=== PATIENT | male | born 1965 | race Caucasian/White ===

== ENCOUNTER 2023-02-21 17:27 | Observation (INO) | payer BC ==
[2023-02-21 18:04] LABS: Basophils % (A) 0 %; Eosinophils # (A) 0.1 k/uL (0-0.7); Eosinophils % (A) 2 %; HCT 38.3 % (39.0-53.0); HGB 13.6 gm/dL (13.0-17.5); Lymphocytes # (A) 2.1 k/uL (1.0-4.8); Lymphocytes % (A) 35 %; MCH 30.9 pg (25.0-35.0); MCHC 35.4 g/dL (31.0-37.0); MCV 87.3 fL (80.0-100.0); Mean Platelet Volume 7.4; Monocytes # (A) 0.4 k/uL (0-1.0); Monocytes % (A) 7 %; Neutrophils # (A) 3.1 k/uL (1.3-7.7); Neutrophils % (A) 54 %; Platelet Count 268 k/uL (150-450); RBC 4.39 m/uL (4.30-5.90); WBC 5.9 k/uL (3.8-10.6)
[2023-02-21 18:13] LABS: Partial Thromboplastin Time 24.9 sec (22.0-30.0); Prothrombin Time 10.8 sec (9.0-12.0)
[2023-02-21 18:18] LABS: ALT 51 U/L (4-49); AST 35 U/L (17-59); African American GFR (CKD) >90 (>60 ml/min/1.73 sqM); Albumin 4.6 g/dL (3.5-5.0); Alkaline Phosphatase 51 U/L (38-126); Anion Gap 14 mmol/L; Blood Urea Nitrogen 10 mg/dL (9-20); Calcium 9.1 mg/dL (8.4-10.2); Carbon Dioxide 26 mmol/L (22-30); Chloride 103 mmol/L (98-107); Glucose 116 mg/dL (74-99); Non-African American GFR(CKD) 80 (>60 ml/min/1.73 sqM); Potassium 3.8 mmol/L (3.5-5.1); Sodium 143 mmol/L (137-145); Total Bilirubin 0.6 mg/dL (0.2-1.3); Total Protein 7.9 g/dL (6.3-8.2)
[2023-02-21] MEDS ORDERED: ASPIRIN 81 MG PO STA (18:21)
[2023-02-21] MEDS ORDERED: NITROGLYCERIN OINT 1 INCH/GM PACKET TOPICAL STA (18:21)
[2023-02-21] MEDS ORDERED: LORazepam 2 MG/ML INJ IV STA (18:21)
--- NOTE | 2023-02-21 18:22 | ED ---
General Adult HPI - General Chief complaint: Chest Pain Stated complaint: Chest Pain Time Seen by Provider: 02/21/23 18:00 Source: patient, RN notes reviewed, old records reviewed Mode of arrival: ambulatory Limitations: no limitations - History of Present Illness Initial comments: This a 58-year-old male presents emergency Department complaining of left-sided chest pain. Patient states that the pain has been coming and going since last night. Patient states he has no reproducible pain with palpation. Patient states is no pain with deep breath. Patient states he doesn't have any radiation of the pain patient denies any shortness of breath. Patient states she's never had this kind of pain before. Patient states he does have diabetes and he has a very strong family history of heart disease. Patient blood pressure is very elevated on arrival. Patient denies any smoking history. Patient denies any recent fever chills or cough per patient denies any abdominal pain patient denies nausea vomiting diarrhea. Patient denies headache patient denies numbness weakness. Patient denies any lightheadedness or dizziness. - Related Data Home Medications Medication Instructions Recorded Confirmed metFORMIN HCL [Glucophage] 500 mg PO BID 02/21/23 02/21/23 Allergies Allergy/AdvReac Type Severity Reaction Status Date / Time No Known Allergies Allergy Verified 02/21/23 18:12 Review of Systems ROS Statement: Those systems with pertinent positive or pertinent negative responses have been documented in the HPI. ROS Other: All systems not noted in ROS Statement are negative. Past Medical History Past Medical History: Diabetes Mellitus History of Any Multi-Drug Resistant Organisms: None Reported Past Surgical History: Hernia Repair Past Psychological History: No Psychological Hx Reported Smoking Status: Never smoker Past Alcohol Use History: None Reported Past Drug Use History: None Reported General Exam - General Exam Comments Initial Comments: GENERAL: Patient is well-developed and well-nourished. Patient is nontoxic and well-hydrated and is in mild distress. ENT: Neck is soft and supple. No significant lymphadenopathy is noted. Oropharynx is clear. Moist mucous membranes. Neck has full range of motion without eliciting any pain. EYES: The sclera were anicteric and conjunctiva were pink and moist. Extraocular movements were intact and pupils were equal round and reactive to light. Eyelids were unremarkable. PULMONARY: Unlabored respirations. Good breath sounds bilaterally. No audible rales rhonchi or wheezing was noted. CARDIOVASCULAR: There is a regular rate and rhythm without any murmurs gallops or rubs. ABDOMEN: Soft and nontender with normal bowel sounds. SKIN: Skin is clear with no lesions or rashes and otherwise unremarkable. NEUROLOGIC: Patient is alert and oriented x3. Cranial nerves II through XII are grossly intact. Motor and sensory are also intact. Normal speech, volume and content. Symmetrical smile. MUSCULOSKELETAL: Normal extremities with adequate strength and full range of motion. LYMPHATICS: No significant lymphadenopathy is noted PSYCHIATRIC: Normal psychiatric evaluation. Limitations: no limitations Course Vital Signs 02/21/23 02/21/23 17:38 18:45 Temperature 98.3 F Pulse Rate 78 79 Respiratory 20 16 Rate Blood Pressure 168/110 164/109 O2 Sat by Pulse 99 100 Oximetry Procedures - Procedures Initial comment: Patient complain to family about something being in her left eye some family asked me to look I used proparacaine and then used fluorescein stain used a Sutherland lamp and examined that I no foreign body I no abrasion. Medical Decision Making - Medical Decision Making EKG was interpreted by myself it shows a sinus rhythm at 70 bpm IN interval 261 QRS is 96 Q-T intervals 391 QTC is 411. Patient's EKG shows no ST segment elevation or depression. Was pt. sent in by a medical professional or institution (, PA, FACILITY ASSISTANT, urgent care, hospital, or long term...) When possible be specific @ -No Did you speak to anyone other than the patient for history (EMS, parent, family, police, friend...)? What history was obtained from this source @ -No Did you review nursing and triage notes (agree or disagree)? Why? @ -I reviewed and agree with nursing and triage notes Were old charts reviewed (outside hosp., previous admission, EMS record, old EKG, old radiological studies, urgent care reports/EKG's, long term records)? Report findings @ -No old charts were reviewed Differential Diagnosis (chest pain, altered mental status, abdominal pain women, abdominal pain men, vaginal bleeding, weakness, fever, dyspnea, syncope, headache, dizziness, GI bleed, back pain, seizure, CVA, palpatations, mental health, musculoskeletal)? @ -Differential Chest Pain: Stable Angina, Unstable Angina, STEMI, NSTEMI Aortic Dissection, Pneumothorax, Musculoskeletal, Esophageal Spasm GERD, Cholecystitis, Pancreatitis, Zoster, this is not meant to be an all-inclusive list. EKG interpreted by me (3pts min.). @ -As above X-rays interpreted by me (1pt min.). @ -Chest x-ray was interpreted by myself. Chest x-ray shows no acute abnormality CT interpreted by me (1pt min.). @ -None done U/S interpreted by me (1pt. min.). @ -None done What testing was considered but not performed or refused? (CT, X-rays, U/S, labs)? Why? @ -None What meds were considered but not given or refused? Why? @ -None Did you discuss the management of the patient with other professionals (professionals i.e. DrKristin, PA, FACILITY ASSISTANT, lab, RT, psych nurse, school social worker, glazier metal furniture, teacher, supply requirements officer, case specialist)? Give summary @ -I spoke with Dr. Dior he agreed to admit the patient minute the patient wrote admitting orders Was smoking cessation discussed for >3mins.? @ -No Was critical care preformed (if so, how long)? @ -No Were there social determinants of health that impacted care today? How? (Homel essness, low income, unemployed, alcoholism, drug addiction, transportation, low edu. Level, literacy, decrease access to med. care, penitentiary, rehab)? @ -No Was there de-escalation of care discussed even if they declined (Discuss DNR or withdrawal of care, Hospice)? DNR status @ -No What co-morbidities impacted this encounter? (DM, HTN, Smoking, COPD, CAD, Cancer, CVA, ARF, Chemo, Hep., AIDS, mental health diagnosis, sleep apnea, morbid obesity)? @ -Strong family history of coronary artery disease patient also has high cholesterol Was patient admitted / discharged? Hospital course, mention meds given and route, prescriptions, significant lab abnormalities, going to OR and other per tinent info. @ -Patient's chest pain was minimal in the emergency department. Patient had Nitropaste patient also had aspirin. Patient's chest x-ray showed no acute abnormality I spoke with Dr. Dior he agreed to admit the patient admitted the patient wrote admitting orders Undiagnosed new problem with uncertain prognosis? @ -No Drug Therapy requiring intensive monitoring for toxicity (Heparin, Nitro, Insulin, Cardizem)? @ -No Were any procedures done? @ -No Diagnosis/symptom? @ -Chest pain Acute, or Chronic, or Acute on Chronic? @ -Acute Uncomplicated (without systemic symptoms) or Complicated (systemic symptoms)? @ -Complicated Side effects of treatment? @ -No Exacerbation, Progression, or Severe Exacerbation? @ -No Poses a threat to life or bodily function? How? (Chest pain, [place], [place], pneumonia, PE, COPD, DKA, ARF, appy, cholecystitis, CVA, Diverticulitis, Homicidal, Suicidal, threat to staff... and all critical care pts) @ -This could lead to hypoperfusion end organ dysfunction - Lab Data Result diagrams: 02/21/23 17:53 02/21/23 17:53 Lab Results 02/21/23 02/21/23 02/21/23 Range/Units 17:53 17:53 17:53 WBC 5.9 (3.8-10.6) k/uL RBC 4.39 (4.30-5.90) m/uL Hgb 13.6 (13.0-17.5) gm/dL Hct 38.3 L (39.0-53.0) % MCV 87.3 (80.0-100.0) fL MCH 30.9 (25.0-35.0) pg MCHC 35.4 (31.0-37.0) g/dL RDW 13.0 (11.5-15.5) % Plt Count 268 (150-450) k/uL MPV 7.4 Neutrophils % 54 % Lymphocytes % 35 % Monocytes % 7 % Eosinophils % 2 % Basophils % 0 % Neutrophils # 3.1 (1.3-7.7) k/uL Lymphocytes # 2.1 (1.0-4.8) k/uL Monocytes # 0.4 (0-1.0) k/uL Eosinophils # 0.1 (0-0.7) k/uL Basophils # 0.0 (0-0.2) k/uL PT 10.8 (9.0-12.0) sec INR 1.0 (<1.2) APTT 24.9 (22.0-30.0) sec Sodium 143 (137-145) mmol/L Potassium 3.8 (3.5-5.1) mmol/L Chloride 103 (98-107) mmol/L Carbon Dioxide 26 (22-30) mmol/L Anion Gap 14 mmol/L BUN 10 (9-20) mg/dL Creatinine 1.02 (0.66-1.25) mg/dL Est GFR (CKD-EPI)AfAm >90 (>60 ml/min/1.73 sqM) Est GFR (CKD-EPI)NonAf 80 (>60 ml/min/1.73 sqM) Glucose 116 H (74-99) mg/dL Calcium 9.1 (8.4-10.2) mg/dL Total Bilirubin 0.6 (0.2-1.3) mg/dL AST 35 (17-59) U/L ALT 51 H (4-49) U/L Alkaline Phosphatase 51 (38-126) U/L Troponin I (0.000-0.034) ng/mL Total Protein 7.9 (6.3-8.2) g/dL Albumin 4.6 (3.5-5.0) g/dL 02/21/23 Range/Units 17:53 WBC (3.8-10.6) k/uL RBC (4.30-5.90) m/uL Hgb (13.0-17.5) gm/dL Hct (39.0-53.0) % MCV (80.0-100.0) fL MCH (25.0-35.0) pg MCHC (31.0-37.0) g/dL RDW (11.5-15.5) % Plt Count (150-450) k/uL MPV Neutrophils % % Lymphocytes % % Monocytes % % Eosinophils % % Basophils % % Neutrophils # (1.3-7.7) k/uL Lymphocytes # (1.0-4.8) k/uL Monocytes # (0-1.0) k/uL Eosinophils # (0-0.7) k/uL Basophils # (0-0.2) k/uL PT (9.0-12.0) sec INR (<1.2) APTT (22.0-30.0) sec Sodium (137-145) mmol/L Potassium (3.5-5.1) mmol/L Chloride (98-107) mmol/L Carbon Dioxide (22-30) mmol/L Anion Gap mmol/L BUN (9-20) mg/dL Creatinine (0.66-1.25) mg/dL Est GFR (CKD-EPI)AfAm (>60 ml/min/1.73 sqM) Est GFR (CKD-EPI)NonAf (>60 ml/min/1.73 sqM) Glucose (74-99) mg/dL Calcium (8.4-10.2) mg/dL Total Bilirubin (0.2-1.3) mg/dL AST (17-59) U/L ALT (4-49) U/L Alkaline Phosphatase (38-126) U/L Troponin I <0.012 (0.000-0.034) ng/mL Total Protein (6.3-8.2) g/dL Albumin (3.5-5.0) g/dL Disposition Clinical Impression: Chest pain Disposition: ADMITTED IP TO THIS [facility] Referrals: Alanna Poole MD [Primary Care Provider] - 1-2 days Time of Disposition: 20:25
--- NOTE | 2023-02-21 19:19 | XR ---
EXAMINATION TYPE: XR chest 2V DATE OF EXAM: 02/21/2023 COMPARISON: NONE HISTORY: Difficulty in breathing and chest pain. TECHNIQUE: Frontal and lateral views of the chest are obtained. FINDINGS: There is no focal air space opacity, pleural effusion, or pneumothorax seen. The cardiac silhouette size is upper limits of normal. The osseous structures are intact. Overlying EKG leads a re present. IMPRESSION: No acute cardiopulmonary process.
[2023-02-21] MEDS ORDERED: NITROGLYCERIN SL TABS 0.4 MG TAB SUBLINGUAL PRN (20:25)
[2023-02-21 21:32] LABS: Glucose,Whole Blood 132 mg/dL (70-110)
[2023-02-21] MEDS: metFORMIN 500 MG TAB PO SCH (21:44)
[2023-02-21] MEDS: NITROGLYCERIN OINT 1 INCH/GM PACKET TOPICAL SCH (23:40)
[2023-02-22] MEDS: NITROGLYCERIN OINT 1 INCH/GM PACKET TOPICAL SCH (06:27)
[2023-02-22] MEDS: metFORMIN 500 MG TAB PO SCH (06:27)
[2023-02-22 06:29] LABS: Glucose,Whole Blood 133 mg/dL (70-110)
--- NOTE | 2023-02-22 08:04 | P.CRDCN ---
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 He has no history of known CAD. Denies history of hypertension and hyperlipidemia. Has history of diabetes mellitus type 2 and according to the patient his last hemoglobin A1c was 5.7%. He presented to the emergency department with complaints of left-sided chest pressure, occurring randomly, not related to physical activity, brief and intermittent. He was apparently helping a neighbor move over the weekend without any issues but feels that this could possibly be musculoskeletal. Upon arrival his blood pressure was quite elevated. Remains elevated this morning. EKG showed sinus mechanism with no evidence of ischemia. Troponins have been unremarkable. Currently complains of a headache likely from nitroglycerin paste. Continues to have intermittent episodes of pressure in the left side of his chest does not appear to be reproducible, intermittent and brief. Chest x-ray showed no acute process. He seems to be average in his physical activity he is retired does not do any type of routine exercise program but is active or doing housework. He denies any complaints of shortness of breath, palpitations, dizziness, lightheadedness. He has no orthopnea, edema or PND. She has felt somewhat more tired lately but denies any change in his physical activity. Past Medical History Past Medical History: Diabetes Mellitus History of Any Multi-Drug Resistant Organisms: None Reported Past Surgical History: Hernia Repair Past Psychological History: No Psychological Hx Reported Smoking Status: Never smoker Past Alcohol Use History: None Reported Past Drug Use History: None Reported Medications and Allergies Home Medications Medication Instructions Recorded Confirmed Type metFORMIN HCL [Glucophage] 500 mg PO BID 02/21/23 02/21/23 History Allergies Allergy/AdvReac Type Severity Reaction Status Date / Time No Known Allergies Allergy Verified 02/21/23 18:12 Physical Exam Vitals: Vital Signs Temp Pulse Pulse Resp BP BP Pulse Ox 02/22/23 04:00 68 18 146/82 99 02/22/23 01:55 67 18 02/21/23 23:48 98.2 F 67 18 131/71 100 02/21/23 21:30 18 02/21/23 21:26 98.2 F 63 18 152/82 100 02/21/23 21:06 68 16 148/86 98 02/21/23 20:00 80 16 140/80 98 02/21/23 19:00 78 16 130/89 98 02/21/23 18:45 79 16 164/109 100 02/21/23 17:38 98.3 F 78 20 168/110 99 Intake and Output 02/21/23 02/22/23 02/22/23 22:59 06:59 14:59 Intake Total 480 Balance 480 Intake: Oral 480 Other: Voiding Method Toilet Toilet # Voids 2 Weight 92.986 kg PHYSICAL EXAMINATION: This is a 58-year-old gentleman in no apparent distress at the time of my examination. HEENT: Head is atraumatic, normocephalic. Pupils are equal, round. Sclerae anicteric. Conjunctivae are clear. Mucous membranes of the mouth are moist. Neck is supple. There is no elevated jugular venous pressure. No carotid bruit is heard. CHEST EXAMINATION: Clear to auscultation bilaterally. No wheezes rales or rhonchi. Respirations even and nonlabored. HEART EXAMINATION: Heart regular, positive S1 and S2. No S3. No S4. No clicks, rubs or murmurs. ABDOMEN: Soft, nontender. Bowel sounds are heard. No organomegaly noted. EXTREMITIES: 2+ peripheral pulses with no evidence of peripheral edema and no calf tenderness noted. NEUROLOGIC EXAMINATION: Patient is awake, alert and oriented x3. Results 02/21/23 17:53 02/21/23 17:53 Cardiac Enzymes 02/21/23 02/21/23 02/21/23 Range/Units 17:53 17:53 22:12 AST 35 (17-59) U/L Troponin I <0.012 <0.012 (0.000-0.034) ng/mL 02/22/23 Range/Units 03:17 AST (17-59) U/L Troponin I <0.012 (0.000-0.034) ng/mL Coagulation 02/21/23 Range/Units 17:53 PT 10.8 (9.0-12.0) sec APTT 24.9 (22.0-30.0) sec CBC 02/21/23 Range/Units 17:53 WBC 5.9 (3.8-10.6) k/uL RBC 4.39 (4.30-5.90) m/uL Hgb 13.6 (13.0-17.5) gm/dL Hct 38.3 L (39.0-53.0) % Plt Count 268 (150-450) k/uL Comprehensive Metabolic Panel 02/21/23 Range/Units 17:53 Sodium 143 (137-145) mmol/L Potassium 3.8 (3.5-5.1) mmol/L Chloride 103 (98-107) mmol/L Carbon Dioxide 26 (22-30) mmol/L BUN 10 (9-20) mg/dL Creatinine 1.02 (0.66-1.25) mg/dL Glucose 116 H (74-99) mg/dL Calcium 9.1 (8.4-10.2) mg/dL AST 35 (17-59) U/L ALT 51 H (4-49) U/L Alkaline Phosphatase 51 (38-126) U/L Total Protein 7.9 (6.3-8.2) g/dL Albumin 4.6 (3.5-5.0) g/dL Current Medications Generic Name Dose Route Start Last Admin Trade Name Freq PRN Reason Stop Dose Admin Aspirin 325 mg 02/22/23 09:00 Aspirin 325 Mg Tab PO DAILY [facility] Lisinopril 5 mg 02/22/23 09:00 Lisinopril 5 Mg Tab PO DAILY [facility] Metformin HCl 500 mg 02/21/23 21:00 02/22/23 06:27 Metformin 500 Mg Tab PO 500 mg BID-W/MEALS [facility] Administration Nitroglycerin 0.4 mg 02/21/23 20:25 Nitroglycerin Sl Tabs 0.4 Mg Tab SUBLINGUAL Q5M PRN Chest Pain Nitroglycerin 1 inch 02/22/23 00:00 02/22/23 06:27 Nitroglycerin Oint 1 Inch/Gm Packet TOPICAL 1 inch Q6HR [facility] Administration Intake and Output 02/21/23 02/22/23 02/22/23 22:59 06:59 14:59 Intake Total 480 Balance 480 Intake: Oral 480 Other: Voiding Method Toilet Toilet # Voids 2 Weight 92.986 kg 02/21/23 17:53 02/21/23 17:53 EKG Interpretations (text) Normal sinus rhythm Assessment and Plan Assessment: #1 chest pain, acute coronary event has been ruled out, troponins negative 3 and EKG shows no evidence of ischemia #2 diabetes mellitus type 2, controlled 3 elevated blood pressure Plan: From cardiology's perspective we will add an EM inhibitor for better blood pressure control. Discontinue Nitropaste. Schedule patient for 2-D echo with Doppler study to assess cardiac structure and function. We'll also schedule the patient for stress echocardiogram. Check lipids and depending on results and consider adding a statin. Further recommendations to follow. ETHYLBENZENE CONVERTER HELPER note has been reviewed, I agree with a documented findings and plan of care. Patient was seen and examined.
[2023-02-22 08:54] LABS: Chol/HDL Ratio 6.58 Ratio; LDL Cholesterol,Calculated 105.9 mg/dL (0.0-131.0)
[2023-02-22] MEDS ORDERED: ASPIRIN 81 MG PO SCH (09:00)
[2023-02-22] MEDS ORDERED: ASPIRIN 325 MG TAB PO SCH (09:00)
[2023-02-22] MEDS ORDERED: lisinopriL 5 MG TAB PO SCH (09:00)
[2023-02-22] MEDS ORDERED: ACETAMINOPHEN TAB 325 MG TAB PO PRN (09:19)
[2023-02-22 09:24] VITALS: RESP 16
--- NOTE | 2023-02-22 10:35 | P.HPIM ---
History of Present Illness H&P Date: 02/22/23 Chief Complaint: Chest pain This is a 58-year-old patient of Dr. Parada presents with complaints of chest pain. Patient reports that he was outside doing a lot of yard work when he starts experiencing intermittent chest discomfort. Patient denies any previous episodes. Patient denies shortness of breath. Patient denies any recent illness. Patient denies any cardiac history but does report his mother had stent placement. Patient does have past medical history of metformin. Patient denies alcohol or nicotine use. Troponins negative 3. Chest x-ray completed showing no active cardiopulmonary process. 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 Plans for stress echocardiogram and 2-D echo. Vital signs temp 98.4, heart rate 74, respiratory rate 16, blood pressure 143/82 with pulse ox 99% on room air. Patient denies chest pain or shortness breath at this time. Patient denies nausea vomiting or diarrhea. Patient denies any urinary burning or frequency. Review of Systems Please refer to HPI otherwise unremarkable Past Medical History Past Medical History: Diabetes Mellitus History of Any Multi-Drug Resistant Organisms: None Reported Past Surgical History: Hernia Repair Past Psychological History: No Psychological Hx Reported Smoking Status: Never smoker Past Alcohol Use History: None Reported Past Drug Use History: None Reported Medications and Allergies Home Medications Medication Instructions Recorded Confirmed Type metFORMIN HCL [Glucophage] 500 mg PO BID 02/21/23 02/21/23 History Allergies Allergy/AdvReac Type Severity Reaction Status Date / Time No Known Allergies Allergy Verified 02/21/23 18:12 Physical Exam Vitals: Vital Signs Temp Pulse Pulse Resp BP BP Pulse Ox 02/22/23 09:23 98.4 F 74 16 143/82 99 02/22/23 08:07 98 02/22/23 04:00 68 18 146/82 99 02/22/23 01:55 67 18 02/21/23 23:48 98.2 F 67 18 131/71 100 02/21/23 21:30 18 02/21/23 21:26 98.2 F 63 18 152/82 100 02/21/23 21:06 68 16 148/86 98 02/21/23 20:00 80 16 140/80 98 02/21/23 19:00 78 16 130/89 98 02/21/23 18:45 79 16 164/109 100 02/21/23 17:38 98.3 F 78 20 168/110 99 Intake and Output 02/21/23 02/22/23 02/22/23 22:59 06:59 14:59 Intake Total 480 5 Balance 480 5 Intake: IV 5 Invasive Line 1 5 Oral 480 Other: Voiding Method Toilet Toilet Toilet # Voids 2 Weight 92.986 kg Head normocephalic Neck supple Lungs clear to auscultation bilaterally no wheezing or crackles Heart regular rate and rhythm S1-S2, no rub or gallop Abdomen is soft nontender nondistended positive bowel sounds no hepatosplen omegaly Extremities no edema Neuro alert and orientated to 3 Results CBC & Chem 7: 02/21/23 17:53 02/21/23 17:53 Labs: Abnormal Lab Results - Last 24 Hours (Table) 02/21/23 02/21/23 02/21/23 Range/Units 17:53 17:53 21:31 Hct 38.3 L (39.0-53.0) % Glucose 116 H (74-99) mg/dL POC Glucose (mg/dL) 132 H (70-110) mg/dL ALT 51 H (4-49) U/L Triglycerides (0.00-149.00) mg/dL VLDL Cholesterol, Calc (5.00-40.00) mg/dL HDL Cholesterol (40.00-60.00) mg/dL 02/22/23 02/22/23 Range/Units 03:17 06:28 Hct (39.0-53.0) % Glucose (74-99) mg/dL POC Glucose (mg/dL) 133 H (70-110) mg/dL ALT (4-49) U/L Triglycerides 238.00 H (0.00-149.00) mg/dL VLDL Cholesterol, Calc 47.60 H (5.00-40.00) mg/dL HDL Cholesterol 27.50 L (40.00-60.00) mg/dL Thrombosis Risk Factor Assmnt - Choose All That Apply Any of the Below Risk Factors Present?: Yes Each Factor Represents 1 point: Age 41-60 years, Obesity (BMI >25) Thrombosis Risk Factor Assessment Total Risk Factor Score: 2 Thrombosis Risk Factor Assessment Level: Low Risk Assessment and Plan Assessment: 1. Chest pain. Troponins negative 3. Chest x-ray negative. Cardiology consult. Plans for a stress test and 2-D echo 2. Family history of coronary artery disease 3. Diabetes mellitus patient maintained on metformin Cardiology consult placed Stress test and 2-D echo ordered Time with Patient: Greater than 30 (Greater than 60% of the total time spent in counseling and coordination of care)
[2023-02-22 11:44] LABS: Glucose,Whole Blood 162 mg/dL (70-110)
[2023-02-22 11:45] VITALS: BP 160/84; PULSE 84; TEMP 98
[2023-02-22 16:28] LABS: Glucose,Whole Blood 128 mg/dL (70-110)
--- NOTE | 2023-02-22 16:32 | CA ---
Stress Echo Report Tanner Monaco Age: 58 Gender: M : 1965 Exam Date: 02/22/2023 10:48 Exam Location: [facility] Ht (in): 70 Wt (lb): 205 Ordering Physician: Jennyfer Garber Referring Physician: [id number] Dock Manager: BENOIT, Technologist Procedure CPT: Indication: Chest Pain ICD-9 Codes: Rhythm: Patient History: Chest pressure Cardiac Medications: Medications in past 24 hours: Contrast: Stress Results Protocol: Lavell Total dose(mL): Exercise Duration (min:sec): 10:[address] Depression (mm): 0 Angina Score: 0 Lucas Score: 10.3 METS: 11.7 Resting HR: 69 Resting BP: 154 / 75 Peak HR: 162 Peak BP: 232 / 94 Max Predicted HR: 161 101 % Max Predicted HR Target HR: 137 Double Product: 76899 Stress Summary: BP Response: Reason for Termination: Reached target heart rate or work-load Cardiac Symptoms: Test terminated after reaching target heart rate (85% max predicted) ECG Analysis Resting ECG: Normal sinus rhythm, normal ECG Stress ECG: No abnormal ST/T wave changes with exercise Arrhythmia: Occasional PVCs Echo Analysis Resting Echo: Normal resting echocardiogram. Peak Echo Analysis: Normal treadmill stress echocardiogram. MEASUREMENTS (Male/Female) Normal Values CONCLUSIONS Patient falls into low-risk group (DTS >= +5). This associates the patient with an annual CV mortality <= 0.5%. No ECG evidence of ischemia with exercise. Normal global and regional wall motion with stress with a left ventricular ejection fraction of 60 %. Dr. Godwin Howard MD (Electronically Signed) Final Date: 22 February 2023 16:31
--- NOTE | 2023-02-22 16:35 | CA ---
Transthoracic Echo Report Name: Tanner Monaco Age: 58 Gender: M : 1965 Exam Date: 02/22/2023 11:12 Exam Location: [facility] Ht (in): 70 Wt (lb): 205 Ordering Physician: Jennyfer Garber Attending/Referring Phys: [id number], Shirlene Delivery Rep Zoë Molina, MORIS Procedure CPT: Indications: Chest Pain Cardiac Hx: Technical Quality: Good Contrast 1: Total Dose (mL): Contrast 2: Total Dose (mL): MEASUREMENTS (Male / Female) Normal Values 2D ECHO LV Diastolic Diameter PLAX 4.2 cm 4.2 - 5.9 / 3.9 - 5.3 cm LV Systolic Diameter PLAX 2.6 cm IVS Diastolic Thickness 1.3 cm 0.6 - 1.0 / 0.6 - 0.9 cm LVPW Diastolic Thickness 1.2 cm 0.6 - 1.0 / 0.6 - 0.9 cm LV Relative Wall Thickness 0.6 RV Internal Dim ED PLAX 3.4 cm LA Systolic Diameter LX 3.2 cm 3.0 - 4.0 / 2.7 - 3.8 cm M-MODE Aortic Root Diameter MM 3.6 cm MV E Point Septal Separation 0.4 cm AV Cusp Separation MM 1.9 cm DOPPLER AV Peak Velocity 127.1 cm/s AV Peak Gradient 6.5 mmHg MV Area PHT 3.5 cm??? Mitral E Point Velocity 74.2 cm/s Mitral A Point Velocity 92.8 cm/s Mitral E to A Ratio 0.8 MV Deceleration Time 217.1 ms MV E' Velocity 6.5 cm/s Mitral E to MV E' Ratio 11.3 TR Peak Velocity 215.5 cm/s TR Peak Gradient 18.6 mmHg Right Ventricular Systolic Press 23.6 mmHg FINDINGS Left Ventricle Left ventricular ejection fraction is estimated at 55-60 %. Mildly increased septal wall thickness. Left ventricular cavity size normal. Normal left ventricular wall motion. Right Ventricle Mild right ventricular dilatation. Right ventricular systolic pressure within normal limits. Right Atrium Normal right atrial size. Left Atrium Normal left atrial size. Mitral Valve Structurally normal mitral valve. No mitral stenosis, or prolapse.mild mitral regurgitation. Aortic Valve Trileaflet aortic valve. No aortic valve stenosis or regurgitation. Tricuspid Valve Structurally normal tricuspid valve. Mild tricuspid regurgitation. Pulmonic Valve Structurally normal pulmonic valve. Trace pulmonic regurgitation. Pericardium Normal pericardium. No pericardial effusion. Aorta Normal size aortic root and proximal ascending aorta. CONCLUSIONS 1. Normal LV systolic function 2. Mild mitral and tricuspid regurgitation Previewed by: Dr. Godwin Howard MD (Electronically Signed) Final Date: 22 February 2023 16:34
--- NOTE | 2023-02-22 16:39 | P.DS ---
Providers Date of admission: 02/21/23 20:28 Expected date of discharge: 02/22/23 Attending physician: Imani Dior Consults: 02/21/23 20:25 Consult Physician Urgent Consulting Provider: [facility] Consult Reason/Comments: Chest pain Do you want consulting provider notified?: Yes Primary care physician: Alanna Poole [facility] Course: Diagnosis on discharge: 1. Chest pain. Troponins negative 3. Chest x-ray negative. Cardiology consult. Plans for a stress test and 2-D echo. Stress echo was read as negative by Dr Howard. 2. Family history of coronary artery disease 3. Diabetes mellitus patient maintained on metformin Hospital course: Tanner Monaco is a 58-year-old patient of Dr. Parada presents with complaints of chest pain. Patient reports that he was outside doing a lot of yard work when he starts experiencing intermittent chest discomfort. Patient denies any previous episodes. Patient denies shortness of breath. Patient denies any recent illness. Patient denies any cardiac history but does report his mother had stent placement. Patient does have past medical history of metformin. Patient denies alcohol or nicotine use. Troponins negative 3. Chest x-ray completed showing no active cardiopulmonary process. [facility] cardiology services have been consulted. Plans for stress echocardiogram and 2- D echo. Vital signs temp 98.4, heart rate 74, respiratory rate 16, blood pressure 143/82 with pulse ox 99% on room air. Patient denies chest pain or shortness breath at this time. Patient denies nausea vomiting or diarrhea. Patient denies any urinary burning or frequency. patient was evaluated by cardiology, he underwent a stress echo which was negative, he was cleared for discharge. Plan - Discharge Summary Discharge Rx Participant: No New Discharge Prescriptions: New Aspirin 81 mg PO DAILY tab lisinopriL [Zestril] 5 mg PO DAILY tab Continue metFORMIN HCL [Glucophage] 500 mg PO BID Discharge Medication List metFORMIN HCL [Glucophage] 500 mg PO BID 02/21/23 [History] Aspirin 81 mg PO DAILY tab 02/22/23 [Rx] lisinopriL [Zestril] 5 mg PO DAILY tab 02/22/23 [Rx] Follow up Appointment(s)/Referral(s): Ruth Addison MD [REFERRING] - 1 Week (Please call to get a post hosptial follow up appointment.) Alanna Poole MD [Primary Care Provider] - 1-2 days (Offices are closed at this time ([id number]) Please call SATURDAY to make a post hospital follow up appointment.) Patient Instructions/Handouts: Lipid Profile (GEN), Cardiac Stress Test (DC)
== END 2023-02-22 16:50 | disposition home or self-care (01) ==
LOC: EC 17:27 → INTOOBSV 20:28 → 3SCARD 20:28 → UNDODISIN 02-22 16:50
PROVIDERS: ADMIT Internal Medicine; ATTEND Internal Medicine
DX: R07.9 Chest pain, unspecified (principal); E11.9 Type 2 diabetes mellitus without complications; R03.0 Elevated blood-pressure reading, without diagnosis of hypertension; Z79.84 Long term (current) use of oral hypoglycemic drugs; Z82.49 Family history of ischemic heart disease and other diseases of the circulatory system
CPT/HCPCS: 96374; 99285; 36415; 94760; 93005; 93306; 93351; 80061; 80053; 84484 ×2; 85025; 85610; 85730; 71046; G0378 ×3; J2060

== ENCOUNTER → 2023-10-19 | Outpatient (CLI) | payer BC ==
[2023-10-19 14:02] LABS: Basophils # (A) 0.03 X 10*3/uL (0.00-0.10); Basophils % (A) 0.5 %; Eosinophils % (A) 1.8 %; HGB 12.8 g/dL (13.0-17.0); Lymphocytes # (A) 1.86 X 10*3/uL (0.90-5.00); MCH 29.6 pg (27.0-32.0); MCHC 33.7 g/dL (32.0-37.0); Mean Platelet Volume 9.5 FL (9.5-12.2); Monocytes # (A) 0.42 X 10*3/uL (0.20-1.00); Monocytes % (A) 7.5 %; NRBC Per 100 WBC 0 X 10*3/uL (0.00-0.01); Neutrophils % (A) 56.8 %; Platelet Count 259 X 10*3/uL (140-440); RBC 4.32 X 10*6/uL (4.40-5.60); RDW 12.8 % (11.5-14.5); WBC 5.63 X 10*3/uL (4.50-10.00)
[2023-10-19 14:07] LABS: ALT 18 U/L (10-49); AST 16 U/L (14-35); Albumin 4.6 g/dL (3.8-4.9); Albumin/Globulin Ratio 1.53 Ratio (1.60-3.17); Alkaline Phosphatase 58 U/L (41-126); BUN/Creat Ratio 17.82 Ratio (12.00-20.00); Blood Urea Nitrogen 19.6 mg/dL (9.0-27.0); Calcium 9.5 mg/dL (8.7-10.3); Carbon Dioxide 24.1 mmol/L (21.6-31.8); Chloride 103 mmol/L (96-109); Chol/HDL Ratio 4.87 Ratio; Glucose 135 mg/dL (70-110); LDL Cholesterol,Calculated 141.9 mg/dL (0.0-131.0); Potassium 4.5 mmol/L (3.5-5.5); Sodium 140 mmol/L (135-145); Total Bilirubin 0.5 mg/dL (0.3-1.2); Total Protein 7.6 g/dL (6.2-8.2); VLDL Calculation 16.96 mg/dL (5.00-40.00)
[2023-10-19 17:55] LABS: PSA Annual Screen 0.669 ng/mL (0.000-4.000)
== END | disposition home or self-care (01) ==
LOC: LABWHC1 08:58
PROVIDERS: ATTEND Internal Medicine Infectious Disease
DX: Z12.5 Encounter for screening for malignant neoplasm of prostate (principal); E11.65 Type 2 diabetes mellitus with hyperglycemia; E55.9 Vitamin D deficiency, unspecified; D64.9 Anemia, unspecified
CPT/HCPCS: 80061; 80053; 85025; 83036; 36415; G0103

== ENCOUNTER → 2024-11-21 | Outpatient (CLI) | payer BC ==
[2024-11-21 13:07] LABS: Basophils # (A) 0.03 X 10*3/uL (0.00-0.10); Basophils % (A) 0.5 %; Eosinophils # (A) 0.13 X 10*3/uL (0.04-0.35); Eosinophils % (A) 2.2 %; HCT 38.8 % (39.6-50.0); HGB 12.9 g/dL (13.0-17.0); Lymphocytes # (A) 1.92 X 10*3/uL (0.90-5.00); Lymphocytes % (A) 32.1 %; MCH 29.7 pg (27.0-32.0); MCHC 33.2 g/dL (32.0-37.0); MCV 89.4 FL (80.0-97.0); Mean Platelet Volume 10.1 FL (9.5-12.2); Monocytes # (A) 0.51 X 10*3/uL (0.20-1.00); Monocytes % (A) 8.5 %; NRBC Per 100 WBC 0 X 10*3/uL (0.00-0.01); Neutrophils # (A) 3.38 X 10*3/uL (1.80-7.70); Neutrophils % (A) 56.5 %; Platelet Count 270 X 10*3/uL (140-440); RBC 4.34 X 10*6/uL (4.40-5.60); RDW 12.8 % (11.5-14.5); WBC 5.98 X 10*3/uL (4.50-10.00)
[2024-11-21 13:20] LABS: ALT 46 U/L (10-49); AST 25 U/L (14-35); Albumin 4.5 g/dL (3.8-4.9); Albumin/Globulin Ratio 1.41 Ratio (1.60-3.17); Alkaline Phosphatase 64 U/L (41-126); BUN/Creat Ratio 16.92 Ratio (12.00-20.00); Blood Urea Nitrogen 20.3 mg/dL (9.0-27.0); Calcium 9.5 mg/dL (8.7-10.3); Carbon Dioxide 23.6 mmol/L (21.6-31.8); Chloride 100 mmol/L (96-109); Chol/HDL Ratio 7.23 Ratio; Globulin 3.2 g/dL (1.6-3.3); Glucose 215 mg/dL (70-110); PSA Annual Screen 0.805 ng/mL (0.000-4.000); Potassium 4.6 mmol/L (3.5-5.5); Sodium 136 mmol/L (135-145); Total Bilirubin 0.3 mg/dL (0.3-1.2); Total Protein 7.7 g/dL (6.2-8.2)
== END | disposition home or self-care (01) ==
LOC: LABWHC1 08:03
PROVIDERS: ATTEND Internal Medicine Infectious Disease
DX: Z12.5 Encounter for screening for malignant neoplasm of prostate (principal); E16.9 Disorder of pancreatic internal secretion, unspecified; E78.5 Hyperlipidemia, unspecified
CPT/HCPCS: 80061; 80053; 85025; 83721; 83036; 36415; G0103